=== PATIENT | male | born 1970 | race Caucasian/White ===

== ENCOUNTER → 2017-08-16 | Outpatient (CLI) | payer BC ==
[~2017-08-16] VITALS: Ht 177.8 cm; Wt 85.7 kg
[~2017-08-16] MED LIST: AMBIEN 5 MG TABL5 M1 PO; CELEBREX 200 M200 M1 PO; CELEBREX 200 M200 MG PO; CENTRUM SILVER1 EAC2 PO; IBUPROFEN 200200 M1 PO; NORCO 5-325 TA1 EACH PO; PROPECIA1 MG PO; TRAMADOL 50 MG50 MG PO
--- NOTE | ~2017-08-16 | HPC ---
[facility] [place] [address] PAIN MANAGEMENT CONSULTATION Name: LAURIE HAMILTON Room #: REG CATRINA Mahsa.#: [id number] Admission: 08/16/17 Attend Phys: Yao Guido DO Discharge: Date of : 74 Report #: [id number] THIS REPORT FOR: //name// CC: Morteza Guido HISTORY OF PRESENT ILLNESS: The patient is a very pleasant 46-year-old gentleman, prior seen for lumbar radicular symptoms back in 2013 and 2014. Somewhat lost to follow up. He returns to pain clinic today with a new complaint. He notes he has had pain for about 2 years in neck, right shoulder and arm. Denies antecedent trauma and overuse. Notes he has a burning, numb, tingling, sharp sensation, rates pain of 5 on VAS. Pain is exacerbated with cervical range of motion. He has tried a TENS unit, physical therapy, nonsteroidal anti-inflammatory medication (Advil) and an inversion table, all with incremental relief, but notes pain is continuing. He did get an MRI accomplished on 05/16/2015. Does noted C6-C7 have bilateral facet and uncovertebral hypertrophy causing severe left and bejiwruy-uh-nwovrg right neural foraminal narrowing. PHYSICAL EXAMINATION: VITAL SIGNS: Shows 46-year-old gentleman, BMI is 27.1 kilograms per meter squared. Blood pressure is 116/72, pulse 87, respirations are 14. NEUROLOGIC: Cranial nerves 2-12 are grossly intact. Pupils equal, reactive to light and accommodation. Extraocular muscles are intact. Cervical range of motion is limited with positive Lhermitte's radiating to the right shoulder and arm. Right triceps strength is diminished compared to the left. Deep tendon reflexes show diminished right triceps reflex compared to the left. Biceps and brachioradialis are generally symmetric. Hand grasp fortunately is preserved, Tinel's is negative. HEART: Regular, rhythmical. LUNGS: Clear. REVIEW OF SYSTEMS: Again, generally healthy gentleman. Twelve-point review of systems is unremarkable other than for prior history of lumbar radicular symptoms. ASSESSMENT: Symptomatic cervical radiculopathy by clinical exam and history, correlated with MRI findings. He is status post lumbar decompressive laminectomy in 2003 (left hemilaminectomy). RECOMMENDATION: 1. Epidural injection under fluoroscopy today. 2. Continue kmef-lev-gboarkq nonsteroidal anti-inflammatory medication and physical therapy. 3. Follow up in 4 [place] [address] PAIN MANAGEMENT CONSULTATION Name: LAURIE HAMILTON Room #: REG CLI Doreen#: [id number] Admission: 08/16/17 Attend Phys: Yao Guido DO Discharge: Date of : 74 Report #: [id number] PROCEDURE: Cervical epidural injection under fluoroscopy. PROCEDURE NOTE: After written and informed consent was obtained including risk of dural puncture, spinal cord trauma, paralysis and increased pain, the patient was taken to the fluoroscopy suite and placed in the prone position, with appropriate abdominal bolstering, neck was flexed, palms under the thighs. Skin was prepped with ChloraPrep. Sterile draping was applied. Skin wheal with 1% Xylocaine was raised. A 22-gauge 3-1/2 inch epidural Tuohy needle was placed via a midline approach at the C7-T1 interspace, advanced under biplanar fluoroscopy using continuous loss of resistance. With appropriate loss of resistance at the expected depth on lateral view, the glass loss of resistance syringe was disconnected. A low volume extension tubing was connected to the needle and a 5 mL syringe. Negative aspiration for cerebrospinal fluid or blood was noted. A 1 mL of Omnipaque was injected which showed spread within the epidural space on biplanar fluoroscopy. This was followed with 80 mg of triamcinolone plus 1 mL of 1.5% preservative Xylocaine. Needle was withdrawn to the interspinous ligament, 0.5 mL of Xylocaine was used to flush the needle. The needle was then completely withdrawn. The area was cleansed. Band-Aid was applied. The patient was allowed to move off the procedure table and ambulated to the recovery room, monitored for an appropriate period of time, discharged in good and stable condition. <ELECTRONICALLY SIGNED> By: Yao Guido DO 08/19/17 0657 [id number] [id number] Yao Guido DO /nt
[2017-08-16 11:01] VITALS: BP 116/72
== END ==
LOC: PAIN 07:11
DX: M54.12 Radiculopathy, cervical region (principal); Z79.899 Other long term (current) drug therapy; Z87.891 Personal history of nicotine dependence

== ENCOUNTER → 2017-09-27 | Outpatient (CLI) | payer BC ==
[~2017-09-27] VITALS: Ht 177.8 cm; Wt 85.1 kg
--- NOTE | ~2017-09-27 | HPC ---
[facility] [place] [address] [address] [place] [address] PAIN MANAGEMENT CONSULTATION Name: LAURIE HAMILTON Room #: REG CATRINA Logan#: [id number] Admission: 09/27/17 Attend Phys: Yao Guido DO Discharge: Date of : 74 Report #: [id number] THIS REPORT FOR: //name// CC: Morteza Guido SUBJECTIVE: The patient is a 46-year-old gentleman, prior seen in the pain clinic for symptomatic cervical radiculopathy, was given a single epidural injection on 08/16/2017. We did get an MRI of the cervical spine, which we reviewed today. He does have a disk protruding at C6-C7 somewhat to the right of midline. Epidural injection at last visit afforded greater than 60% relief, but still has some radicular symptoms in the right shoulder and arm. ASSESSMENT: Symptomatic cervical radiculopathy by clinical exam and history. RECOMMENDATION: Repeat epidural injection under fluoroscopy today, we will plan to see the patient in about 30 days for reevaluation, cancel if doing well. PROCEDURE: Cervical epidural injection under fluoroscopy. PROCEDURE NOTE: After written and informed consent was obtained including risk of dural puncture, spinal cord trauma, paralysis and increased pain, the patient was taken to the fluoroscopy suite and placed in the prone position, with appropriate abdominal bolstering, neck was flexed, palms under the thighs. Skin was prepped with ChloraPrep. Sterile draping was applied. Skin wheal with 1% Xylocaine was raised. A 22-gauge 3-1/2 inch epidural Tuohy needle was placed via a midline approach at the C7-T1 interspace, advanced under biplanar fluoroscopy using continuous loss of resistance. With appropriate loss of resistance at the expected depth on lateral view, the glass loss of resistance syringe was disconnected. A low volume extension tubing was connected to the needle and a 5 mL syringe. Negative aspiration for cerebrospinal fluid or blood was noted. A 1 mL of Omnipaque was injected which showed spread within the epidural space on biplanar fluoroscopy. This was followed with 80 mg of triamcinolone plus 1 mL of 1.5% preservative Xylocaine. Needle was withdrawn to the interspinous ligament, 0.5 mL of Xylocaine was used to flush the needle. The needle was then completely withdrawn. The area was cleansed. Band-Aid was applied. The patient was allowed to move off the procedure table and ambulated to the recovery room, monitored for an appropriate period of time, discharged in good and stable condition. <ELECTRONICALLY SIGNED> By: Yao Guido DO 09/30/17 0759 [id number] Yao Guido DO /nt
[2017-09-27 10:06] VITALS: BP 107/72
== END | disposition home or self-care (01) ==
LOC: PAIN 06:47
DX: M54.12 Radiculopathy, cervical region (principal); G89.29 Other chronic pain; Z87.891 Personal history of nicotine dependence

== ENCOUNTER → 2017-11-01 | Outpatient (CLI) | payer BC ==
[~2017-11-01] VITALS: Ht 177.8 cm; Wt 82.4 kg
[~2017-11-01] MED LIST changes: +OXYCODONE-ACET1 EACH PO; +ZOLPIDEM TART12.5 MG PO
--- NOTE | ~2017-11-01 | HPC ---
[facility] [address] [address] PAIN MANAGEMENT CONSULTATION Name: LAURIE HAMILTON Room #: REG CATRINA Logan#: [id number] Admission: 11/01/17 Attend Phys: Yao Giudo DO Discharge: Date of : 74 Report #: [id number] THIS REPORT FOR: //name// CC: Morteza Guido DATE OF SERVICE: 11/01/2017 HISTORY OF PRESENT ILLNESS: The patient is a very pleasant 47-year-old gentleman, being treated for symptomatic cervical radiculopathy. He has had 2 cervical epidural injections, 08/16/2017 and 09/28/2017. Both injections afforded a very good relief, in fact radicular symptoms are almost gone. Still has some pain in the right shoulder and upper arm. He has better range of motion and his hand grasp is improved. Still has tenderness in the right trapezius with a modest trigger point noted here. Still moderately positive Lhermitte's radiating to the right arm. Reviewed diagnostic findings including MRI of the cervical spine from 08/21/2017 noting moderate size right HNP at C6-C7. Symptomatic cervical radiculopathy with good overall improvement following 2 epidural injections, the patient rates about 80% overall improvement, but still has ongoing symptoms. RECOMMENDATION: 1. Cervical epidural injection under fluoroscopy today. 2. Right trigger point injection of the suprascapular muscle on the right side. PROCEDURE NOTE: Cervical epidural injection under fluoroscopy. PROCEDURE NOTE: After written and informed consent was obtained including risk of dural puncture, spinal cord trauma, paralysis and increased pain, the patient was taken to the fluoroscopy suite and placed in the prone position, with appropriate abdominal bolstering, neck was flexed, palms under the thighs. Skin was prepped with ChloraPrep. Sterile draping was applied. Skin wheal with 1% Xylocaine was raised. A 22-gauge 3-1/2 inch epidural Tuohy needle was placed via a midline approach at the C7-T1 interspace, advanced under biplanar fluoroscopy using continuous loss of resistance. With appropriate loss of resistance at the expected depth on lateral view, the glass loss of resistance syringe was disconnected. A low volume extension tubing was connected to the needle and a 5 mL syringe. Negative aspiration for cerebrospinal fluid or blood was noted. A 1 mL of Omnipaque was injected which showed spread within the epidural space on biplanar fluoroscopy. This was followed with 60 mg of triamcinolone plus 1 mL of 1.5% preservative Xylocaine. Needle was withdrawn to the interspinous ligament, 0.5 mL of Xylocaine was used to flush the needle. The needle was then completely withdrawn. The area was cleansed. Band-Aid was [address] [address] PAIN MANAGEMENT CONSULTATION Name: LOLIARLEENLAURIE Gorman Room #: REG CLJamar Logan#: [id number] Admission: 11/01/17 Attend Phys: Yao Guido DO Discharge: Date of : 74 Report #: [id number]. Attention was then directed toward the single Trigger point identified in the right suprascapular muscle; this area was cleansed with alcohol and a 25 guage needle was used to inject 20 mg triamcinalone plus 4 cc 1% xylocaine into and around the quill stripper point. Needle was removed and bandaid was applied. The patient was allowed to move off the procedure table and ambulated to the recovery room, monitored for an appropriate period of time, discharged in good and stable condition. <ELECTRONICALLY SIGNED> By: Yao Guido DO 11/04/17 0731 [id number] [id number] Yao Guido DO /nt
[2017-11-01 10:52] VITALS: BP 141/87
== END | disposition home or self-care (01) ==
LOC: PAIN 06:48
DX: M54.12 Radiculopathy, cervical region (principal); M79.1 Myalgia; Z87.891 Personal history of nicotine dependence

== ENCOUNTER → 2018-02-21 | Outpatient (CLI) | payer BC ==
[~2018-02-21] VITALS: Ht 177.8 cm; Wt 81.6 kg
--- NOTE | ~2018-02-21 | HPC ---
[facility] [address] [employer] [place] [address] PAIN MANAGEMENT CONSULTATION Name: LAURIE HAMILTON Room #: REG CATRINA Mahsa.#: [id number] Admission: 02/21/18 Attend Phys: Yao Guido DO Discharge: Date of : 74 Report #: [id number] THIS REPORT FOR: //name// CC: Morteza Guido The patient is a very pleasant 47-year-old gentleman, prior treated last fall for cervical radiculopathy. He had cervical epidural injections in 07/2017 and 09/2017 and a third injection on 11/01/2017. He had prior been treated for lumbar radicular pain back in 2013 and again in 2014. The patient was doing well following cervical epidural injections, but notes in the past 4-6 weeks, pain has begun to recur in the low back radiating down the left leg in an L4-L5 pattern. Notes intermittent paresthesia. Rates his pain a 5 on a VAS. Notes no myelopathic symptoms. The patient is status post prior laminotomy at L5-S1. PHYSICAL EXAMINATION: Notes 5 feet 10 inches, 180 pounds gentleman, BMI is 25.8 kilograms per meter squared. Blood pressure 121/82, pulse 98 and respirations 14. Rises from chair using armrest, modestly antalgic gait, positive straight leg raise at 30 degrees on the left, diminished left patellar reflex compared to the right. Achilles reflex diminished on the left as well. Skin integument is intact. Gait is generally tandem. Lumbar flexion exacerbates some diffuse back pain. Reviewing diagnostic studies somewhat dated from 09/2014 does note the aforementioned laminotomy defect on the left at L5-S1. There was tissue surrounding the proximal left S1 nerve root. ASSESSMENT: Symptomatic lumbar radiculopathy by clinical exam and history. RECOMMENDATIONS: Given excellent relief with prior injection back in 2013 and 2014, we will repeat a single left midline epidural injection at L4-L5. Follow up in 4 weeks for evaluation. If this does not afford adequate relief, we will need a new MRI of the lumbar spine with and without contrast. Continue p.r.n. Celebrex. Encouraged p.r.n. Aleve use and encouraged this on a more daily basis. ASSESSMENT: 1. Symptomatic lumbar radiculopathy by clinical exam and history. 2. Symptomatic cervical radiculopathy, symptoms relatively quiescent following prior series of cervical epidural injections. PROCEDURE: Lumbar epidural injection under fluoroscopy. [address] [address] PAIN MANAGEMENT CONSULTATION Name: LAURIE HAMILTON Room #: REG CLI Doreen#: [id number] Admission: 02/21/18 Attend Phys: Yao Guido DO Discharge: Date of : 74 Report #: [id number] PROCEDURE NOTE: After both written and informed consent to include risk of spinal cord damage, increased pain, weakness and dural puncture, the patient was taken to the fluoroscopy suite, placed in the prone position. After sterile prep and drape, a skin wheal with lidocaine was raised. A 22-gauge epidural Tuohy needle was inserted in the midline at L4-L5 with good loss to resistance. Negative aspiration for cerebrospinal fluid or blood was noted. Then 1 mL of Omnipaque under biplanar fluoroscopy showed good spread within the epidural space. This was followed with 80 mg of triamcinolone plus 1 mL of 1.5% preservative-free Xylocaine, 0.5 mL Xylocaine was then injected to flush the needle; it was removed. The patient was monitored for an appropriate period of time and discharged in good and stable condition. <ELECTRONICALLY SIGNED> By: Yao Guido DO 02/24/18 0830 1156 0028 Yao Guido DO /nt
[2018-02-21 10:19] VITALS: BP 121/82
== END | disposition home or self-care (01) ==
LOC: PAIN 06:55
DX: M54.16 Radiculopathy, lumbar region (principal); G89.29 Other chronic pain; M54.12 Radiculopathy, cervical region; Z87.891 Personal history of nicotine dependence; Z98.890 Other specified postprocedural states

== ENCOUNTER → 2019-01-16 | Outpatient (CLI) | payer BC ==
[~2019-01-16] VITALS: Ht 177.8 cm; Wt 79.4 kg
[~2019-01-16] MED LIST changes: +FLONASE 0.05%50 MCG NASAL; +TADALAFIL20 M1 PO; +TESTOSTERONE75 G1; +TRUVADA 200 MG1 EACH PO; +XANAX1 MG PO
[2019-01-16 10:14] VITALS: BP 134/84
--- NOTE | 2019-01-16 10:24 | NUR ---
Pain Clinic Assessment: 1. History of Osteoarthritis: Not Applicable History of Rheumatoid Arthritis: Not Applicable 2. Height: 5 ft. 10 in. 177.8 cm. Weight: 175.0 lb. oz. 79.380 kg. Patient's BMI: 25.1 3. Vital Signs: BP: 134/84 Pulse: 90 Resp: 18 Temp: 02 Sat: 99 ECG Mon: 4. Pain Intensity: 5 5. Fall Risk: Dizziness: N Needs help standing or walking: N Fallen in the last 3 months: N Fall risk comments: 6. Patient on Blood Thinner: None 7. History of Hypertension: N 8. Opioid Therapy greater than 6 weeks: N Opiate Contract Signed: 9. Risk Assessment Tool Provided: LOW RISK 0 10. Functional Assessment Tool: 45/ 11. Recreational Drug Use: Never Drug Type: Tobacco Use: Former Smoker Tobacco Type: Amount or Packs/day: How Many Years: Alcohol Use: Yes Frequency: Weekly Quant: 2
--- NOTE | 2019-01-23 10:31 | NUR ---
01/23/19 CALLED PATIENT REGARDING RIMA ON 01/16/19-PATIENT STATES THAT HE FEELS SO MUCH BETTER RATING PAIN 2/10. ABLE TO DO THINGS WITH MINIMAL PAIN. ALSO STATED THAT HE WQAS VERY HAPPY WITH CARE HE RECEIVED.
== END | disposition home or self-care (01) ==
LOC: PAIN 06:51
DX: M54.12 Radiculopathy, cervical region (principal); Z87.891 Personal history of nicotine dependence; Z79.899 Other long term (current) drug therapy

== ENCOUNTER → 2019-08-05 | Outpatient (CLI) | payer BC ==
[~2019-08-05] VITALS: Ht 177.8 cm; Wt 81.0 kg
[2019-08-05 10:37] VITALS: BP 119/77
--- NOTE | 2019-08-05 10:44 | NUR ---
Pain Clinic Assessment: 1. History of Osteoarthritis: Not Applicable History of Rheumatoid Arthritis: Not Applicable 2. Height: 5 ft. 10 in. 177.8 cm. Weight: 178.6 lb. oz. 81.012 kg. Patient's BMI: 25.6 3. Vital Signs: BP: 119/77 Pulse: 87 Resp: 14 Temp: 02 Sat: 98 ECG Mon: 4. Pain Intensity: 6 5. Fall Risk: Dizziness: N Needs help standing or walking: N Fallen in the last 3 months: N Fall risk comments: 6. Patient on Blood Thinner: None 7. History of Hypertension: N 8. Opioid Therapy greater than 6 weeks: N Opiate Contract Signed: 9. Risk Assessment Tool Provided: LOW RISK 0 10. Functional Assessment Tool: 11. Recreational Drug Use: Never Drug Type: Tobacco Use: Former Smoker Tobacco Type: Amount or Packs/day: How Many Years: Alcohol Use: Yes Frequency: Quant:
--- NOTE | 2019-09-04 08:25 | HPC ---
[facility] [place] [address] [place] [address] PAIN MANAGEMENT CONSULTATION Name: LAURIE HAMILTON Room #: REG CLJamar Bragg.#: [id number] Admission: 08/05/19 Attend Phys: James Eastman MD Discharge: Date of : 74 Report #: [id number] THIS REPORT FOR: //name// CC: Morteza Eastman DATE OF SERVICE: 08/05/2019 CHIEF COMPLAINT: "Here for another injection." HISTORY: The patient is a 48-year-old gentleman who has been seen in the pain clinic because of chronic pain. He is complaining of pain that radiates down from his right neck into his right shoulder. Notes that the pain can be problematic with movement of his neck. He rates it as a 6/10 at this point. Notes that the pain is exacerbated when he is sleeping as well as with head movements. He has used heat as well as notes some activities can decrease the pain and discomfort. He has undergone a cervical epidural steroid injection in the past and found them beneficial. He returns today with the desire to undergo another injection to help decrease the pain and discomfort that he is experiencing. ALLERGIES: No known drug allergies. CURRENT MEDICATIONS: Xanax 1 mg b.i.d., Flonase 0.05% nasal spray, testosterone ____, 200 mg/300 mg tablets, Tadalafil 20 mg, oxycodone 5/325 b.i.d. p.r.n., Zolpidem 12.5 mg at bedtime. ALLERGIES: No known drug allergies. PAIN CLINIC ASSESSMENT AND PQRS: 1. History of osteoarthritis with arthritic changes in the neck. The patient is not being treated for rheumatoid arthritis. 2. Height 5 feet 10 inches, weight 178 pounds, BMI is 25.6. 3. Vital Signs: Blood pressure 119/77, pulse 87, respiratory rate 14, room air saturation 98%. 4. Pain intensity 6/10. 5. Fall history: The patient has not fallen. 6. Blood thinner. The patient is not on a blood thinning medication. 7. Hypertension. The patient is not being treated for hypertension. 8. Opioids greater than 6 weeks. The patient received medication from one source. 9. Risk assessment tool for opioids low for opioid use. 10. Functional assessment tool . 11. Recreational drug use: The patient denies. 12. Tobacco: The patient is a former smoker. 13. Alcohol: The patient drinks alcoholic beverages on occasion. [facility] [address] [place] [address] PAIN MANAGEMENT CONSULTATION Name: LAURIE HAMILTON [facility] [id number] Admission: 08/05/19 Attend Phys: James Eastman MD Discharge: Date of : 74 Report #: [id number] PHYSICAL EXAMINATION: GENERAL: The patient is a well-developed, well-nourished white male. Appears his stated age. He is alert and oriented x 3. Affect is appropriate. Speech is fluent. HEENT: Normocephalic, atraumatic. Extraocular eye muscles intact. Sclerae nonicteric. Mucous membranes are moist. The patient has pain and discomfort in the upper extremity with pain that radiates down into his right side shoulder and neck area. HEART: Regular rate. ABDOMEN: Nontender. LUNGS: Clear to auscultation. MUSCULOSKELETAL: Upper extremity muscle strength judged to be 5-/5 for the major muscle groups in the upper extremity on the right. The patient has some discomfort. Continues to have pain that radiates down to his right arm with some numbness and tingling on the right side with involvement of his pinky finger. Notes pain and discomfort in the right shoulder muscle. The perception of numbness and tingling in this area. IMPRESSION: 1. Cervical radiculopathy involving the right arm with numbness down into the small finger and the C7/C8 dermatomal distribution. 2. Joint disease/arthritis. RECOMMENDATIONS: We discussed treatment options with the patient. Risks and benefits of a cervical epidural steroid injection were discussed. Possible complications of the procedure, which could include but are not limited to infection, worsening of pain, no improvement in pain, bleeding, increased muscle soreness were discussed and the patient elects to proceed. PROCEDURE NOTE: The patient was taken to the procedure area. He was then assisted in getting on examination table. A pillow was placed under his shoulders for positioning. Fluoroscopy using anterior, posterior as well as lateral viewing were implemented. A 17-gauge Tuohy with loss of resistance technique was placed at the C7-T1 interspace. This area had been sterilely prepped with a Betadine solution. It was infiltrated with 0.25% bupivacaine using a 25-gauge needle. There was no CSF, heme or paresthesia. A total of 120 mg triamcinolone was injected. The patient tolerated the procedure well. There were no complications. A total of 10 seconds fluoroscopy time was used. The patient's pain was 2-3 at the time of discharge. He will follow up in the future as needed. [address] [address] PAIN MANAGEMENT CONSULTATION Name: ALURIE HAMILTON Room #: REG CATRINA Bragg.#: [id number] Admission: 08/05/19 Attend Phys: James aEstman MD Discharge: Date of : 74 Report #: [id number] We would like to thank you for letting us participate in his care. We hope he continues to improve. <ELECTRONICALLY SIGNED> By: James Eastman MD 09/04/19 0825 1138 1608 James Eastman MD /nt
== END | disposition home or self-care (01) ==
LOC: PAIN 07:00
DX: M54.2 Cervicalgia (principal); G89.29 Other chronic pain; Z87.891 Personal history of nicotine dependence

== ENCOUNTER → 2020-03-02 | Outpatient (CLI) | payer BC ==
[~2020-03-02] VITALS: Ht 177.8 cm; Wt 83.8 kg
[2020-03-02 08:15] VITALS: BP 131/86
--- NOTE | 2020-03-02 08:24 | NUR ---
Pain Clinic Assessment: 1. History of Osteoarthritis: Not Applicable History of Rheumatoid Arthritis: Not Applicable 2. Height: 5 ft. 10 in. 177.8 cm. Weight: 184.8 lb. oz. 83.825 kg. Patient's BMI: 26.5 3. Vital Signs: BP: 131/86 Pulse: 104 Resp: 14 Temp: 02 Sat: 100 ECG Mon: 4. Pain Intensity: 8 5. Fall Risk: Dizziness: N Needs help standing or walking: N Fallen in the last 3 months: N Fall risk comments: 6. Patient on Blood Thinner: None 7. History of Hypertension: N 8. Opioid Therapy greater than 6 weeks: N Opiate Contract Signed: 9. Risk Assessment Tool Provided: LOW RISK 0 10. Functional Assessment Tool: 45/ 11. Recreational Drug Use: Never Drug Type: Tobacco Use: Former Smoker Tobacco Type: Amount or Packs/day: How Many Years: Alcohol Use: Yes Frequency: Weekly Quant:
--- NOTE | 2020-03-04 13:39 | HPC ---
[facility] [place] [address] PAIN MANAGEMENT CONSULTATION Name: LAURIE HAMILTON Room #: REG CATRINA Mahsa.#: [id number] Admission: 03/02/20 Attend Phys: James Eastman MD Discharge: Date of : 74 Report #: [id number] THIS REPORT FOR: cc: Morteza Chavez MD, Darren E. MD Brown,James Hoyt MD ~ CC: Morteza Eastman DATE OF SERVICE: 03/02/2020 CHIEF COMPLAINT: The pain has returned and I am having pain down in my right arm, which has gotten worse over the last few days. HISTORY: The patient is a 49-year-old gentleman who has been seen in the pain clinic because of cervical radiculopathy. He has undergone cervical epidural steroid injections in the past. These have proven beneficial. Over the last 6 months, the patient had been doing relatively well. He is now noticing uptick in his pain. He rates it as a 7-8 at this point. He notes that the pain is severely limiting his ability to flex and extend his neck. Left and right lateral rotation were not as problematic. He would like to proceed with another injection. He is aware that the COVID-19 virus is active. He feels that his pain is significantly problematic to the point that he feels that it is urgent/emergent that he undergo an injection to help curtail his pain. CURRENT MEDICATIONS: Xanax 1 mg b.i.d., Flonase 0.5% nasal spray, testosterone, tadalafil 20 mg, oxycodone 5/325 one p.o. b.i.d. p.r.n., zolpidem 12.5 mg at bedtime. ALLERGIES: No known drug allergies. PAIN CLINIC ASSESSMENT AND PQRS: 1. The patient has a history of osteoarthritis with arthritic changes in his neck. He is not being treated for rheumatoid arthritis. 2. Height 5 feet 10 inches, weight 184 pounds, BMI is 26.5. 3. Vital Signs: Blood pressure 131/86, pulse 104, respiratory rate 14, room air saturation 100. 4. Pain intensity: 7-8/10. 5. Fall history: The patient has not fallen in the last 3 months. 6. Blood thinner: The patient is not on a blood thinning medication. 7. Hypertension: The patient is not being treated for hypertension. 8. Opioids greater than 6 weeks: The patient is not on an opioid regimen on a regular basis. 9. Risk assessment tool: Low for opioid use. 10. Functional assessment tool: 45/70. 11. Recreational drug use: [place] [address] PAIN MANAGEMENT CONSULTATION Name: LAURIE HAMILTON Room #: REG CL Doreen#: [id number] Admission: 03/02/20 Attend Phys: James Eastman MD Discharge: Date of : 74 Report #: [id number] 12. Tobacco: The patient is a former smoker. 13. Alcohol: The patient occasionally drinks alcoholic beverages. PHYSICAL EXAMINATION: GENERAL: The patient is a well-developed, well-nourished white male. Appears his stated age. He is alert and oriented x 3. His affect is appropriate. Speech is fluent. HEENT: Normocephalic, atraumatic. Extraocular eye muscles are intact. Sclerae nonicteric. Mucous membranes are moist. The patient is wearing a mask. NECK: He has complained of pain and discomfort in his left and the right side, more problematic on the right with radiation down into his arm and into his forearm. Lumbar extension, lumbar flexion all cause increased pain and discomfort. The patient has a positive increased pain with cervical compression. HEART: Regular rate. ABDOMEN: Nontender. LUNGS: Generally clear. IMPRESSION: 1. Cervical radiculopathy involving the right arm with numbness down into the small finger at C7/C8. 2. Joint disease/arthritis. RECOMMENDATIONS: We discussed treatment options with the patient. We explained to the patient risks and benefits of the procedure. They include but are not limited to infection, worsening of pain, no improvement in pain, nerve damage, cervical nerve damage, spinal headache and the patient elects to proceed. We also reviewed the COVID-19 guidance. The patient has pain, which he feels is urgent/emergent. He has pain that is radiating down into his right arm with numbness and tingling. He is unable to gain comfort. We have explained to the patient the possible changes. The development of immune suppression can be induced with steroid use. We will refrain from use of nonsteroidal anti-inflammatory medications at this juncture. The patient does not have significant comorbidities. He elects to proceed. PROCEDURE NOTE: The patient was taken to the procedure area. He was then assisted in getting on the examination table. His back was sterilely prepped with a Betadine solution. The C7-T1 interspace was identified using fluoroscopy. A 25-gauge needle with 0.25% bupivacaine was used to anesthetize the area. A 17-gauge Tuohy with loss of resistance technique was then used to gain access to the epidural space. There was no CSF, heme or paresthesia. A total of 120 mg triamcinolone was injected. The patient tolerated the procedure well. He rated his pain as 4/10 at the time of discharge. He underwent 11 seconds of fluoroscopy time. He will follow up in the near future. The patient will try and maintain distancing from others. He will continue to wear his mask. He will call us if he has any concerns. [address] [address] PAIN MANAGEMENT CONSULTATION Name: LAURIE HAMILTON [id number] Admission: 03/02/20 Attend Phys: James Eastman MD Discharge: Date of : 74 Report #: [id number] We would like to thank you for letting us participate in his care. We hope he continues to improve. <ELECTRONICALLY SIGNED> By: James Eastman MD 03/04/20 [id number] James Eastman MD /nt
== END | disposition home or self-care (01) ==
LOC: PAIN 06:38
DX: M54.12 Radiculopathy, cervical region (principal); G89.29 Other chronic pain; M19.90 Unspecified osteoarthritis, unspecified site; Z98.890 Other specified postprocedural states; Z79.899 Other long term (current) drug therapy; Z87.891 Personal history of nicotine dependence

== ENCOUNTER → 2020-04-15 | Outpatient (CLI) | payer BC ==
[~2020-04-15] VITALS: Ht 177.8 cm; Wt 83.9 kg
[2020-04-15 08:05] VITALS: BP 132/83
--- NOTE | 2020-04-15 08:09 | NUR ---
Pain Clinic Assessment: 1. History of Osteoarthritis: Not Applicable History of Rheumatoid Arthritis: Not Applicable 2. Height: 5 ft. 10 in. 177.8 cm. Weight: 185.0 lb. oz. 83.916 kg. Patient's BMI: 26.5 3. Vital Signs: BP: 132/83 Pulse: 106 Resp: 18 Temp: 02 Sat: 96 ECG Mon: 4. Pain Intensity: 8 5. Fall Risk: Dizziness: N Needs help standing or walking: N Fallen in the last 3 months: N Fall risk comments: 6. Patient on Blood Thinner: None 7. History of Hypertension: N 8. Opioid Therapy greater than 6 weeks: N Opiate Contract Signed: 9. Risk Assessment Tool Provided: LOW RISK 0 10. Functional Assessment Tool: 45/ 11. Recreational Drug Use: Never Drug Type: Tobacco Use: Former Smoker Tobacco Type: Amount or Packs/day: How Many Years: Alcohol Use: Yes Frequency: Quant:
--- NOTE | 2020-04-18 02:56 | HPC ---
[facility] [place] [address] PAIN MANAGEMENT CONSULTATION Name: LAURIE HAMILTON [id number] Admission: 04/15/20 Attend Phys: James Eastman MD Discharge: Date of : 74 Report #: [id number] THIS REPORT FOR: cc: Morteza Chavez MD, Darren E. MD Brown,James Hoyt MD ~ CC: Morteza Eastman DATE OF SERVICE: 04/15/2020 CHIEF COMPLAINT: The arthritis in my neck has gotten worse. HISTORY: The patient is a 49-year-old gentleman who has been followed in the Pain Clinic because of cervical radiculopathy. He underwent an epidural steroid injection in the past. He feels that he got about 80% improvement after the injection. Pain has still been problematic. He went to [facility]. States that he had an MRI, which showed that the area in his back have narrowed. He is noticing continued pain down his right arm. He rates his pain today as an 8/10. He would like to proceed with an epidural steroid injection. Had no complication from the previous treatment course. Notes that the pain is worse when he is sleeping. Notes movement of his head to look up causes pain and discomfort in the right shoulder blade and mid portion of his back. ALLERGIES: No known drug allergies. CURRENT MEDICATIONS: Xanax 1 mg b.i.d., Flonase 0.5 mg, testosterone, Tadalafil 20 mg, oxycodone 5/325 one p.o. b.i.d., zolpidem 12.5 mg. PAIN CLINIC ASSESSMENT/PQRS: 1. The patient has some osteoarthritic changes in his neck. He is not being treated for rheumatoid arthritis. 2. Height 5 feet 10 inch, weight 185 pounds, BMI is 26.5. 3. Vital signs: Blood pressure 132/83, pulse 106, respiratory rate 18, room air saturation is 96%. 4. Pain intensity, 06/06. 5. Fall history: The patient has not fallen. 6. Blood thinner. The patient is not on a blood thinning medication. 7. Hypertension. The patient is not being treated for hypertension. 8. Opioids. The patient is not on a opioid regimen. 9. Risk assessment tool, low for opioid use. 10. Functional assessment tool, . 11. Recreational drug use. The patient denies. 12. Tobacco: The patient is a former smoker. [address] [address] PAIN MANAGEMENT CONSULTATION Name: LAURIE HAMILTON Room #: REG [facility]#: [id number] Admission: 04/15/20 Attend Phys: James Eastman MD Discharge: Date of : 74 Report #: [id number] 13. Alcohol: The patient denies use of alcoholic beverages. PHYSICAL EXAMINATION: GENERAL: The patient is a well-developed, well-nourished white male. Appears his stated age. He is alert and oriented x 3. His affect is appropriate. Speech is fluent. HEENT: Normocephalic, atraumatic. Extraocular eye muscles intact. Sclerae nonicteric. Mucous membranes are moist. NECK: Without adenopathy. The patient is wearing a mask. The patient with complaints of pain with extension of his neck. Notes pain radiating to right shoulder with pain radiating down into the right shoulder blade and mid portion of his back. Has pain and discomfort in the right forearm. Lumbar extension is not problematic. Lower extremity muscle strength is judged to be 5/5 for the major muscle groups in the lower extremity. HEART: Regular rate. ABDOMEN: Nontender. LUNGS: Clear. IMPRESSION: 1. Cervical radiculopathy involving the right arm with numbness and tingling down into the right arm, right fingers in the C7-T1 area. 2. Joint disease/arthritis. RECOMMENDATIONS: We discussed treatment options with the patient. Risks and benefits of an epidural steroid injection were again discussed. Possible complications of the procedure, which could include but are not limited to infection, worsening of pain, no improvement in pain, nerve damage, bleeding, headache were discussed and the patient elects to proceed. PROCEDURE NOTE: The patient was taken to the procedure area. He was then assisted in getting on examination table. His back was sterilely prepped with a Betadine solution. Fluoroscopy using anterior, posterior as well as lateral viewing were implemented. A skin wheal was placed at the C7-T1 interspace. A 17-gauge Tuohy with loss of resistance technique was used to gain access to the epidural space. There was no CSF, heme or paresthesia. A 120 mg triamcinolone was injected. Anterior and posterior viewing with fluoroscopy confirmed appropriate placement. A total of 8 seconds fluoroscopy time was used. The patient remained in the Pain Clinic for an appropriate amount of time. His pain decreased to 0-1 at the time of discharge. We would like to thank you for letting us participate in his care. We hope he continues to improve. <ELECTRONICALLY SIGNED> By: James Eastman MD 04/18/20 [id number] James Eastman MD /nt
== END | disposition home or self-care (01) ==
LOC: PAIN 06:46
PROVIDERS: ATTEND Anesthesiology Pain Medicine
DX: M54.12 Radiculopathy, cervical region (principal); G89.29 Other chronic pain; M19.90 Unspecified osteoarthritis, unspecified site; Z98.890 Other specified postprocedural states; Z79.899 Other long term (current) drug therapy; Z87.891 Personal history of nicotine dependence

== ENCOUNTER → 2020-12-21 | Outpatient (CLI) | payer OTHER ==
[~2020-12-21] VITALS: Ht 177.8 cm; Wt 82.6 kg
[2020-12-21 14:41] VITALS: BP 136/79
--- NOTE | 2020-12-21 14:57 | NUR ---
Pain Clinic Assessment: 1. History of Osteoarthritis: Not Applicable History of Rheumatoid Arthritis: Not Applicable 2. Height: 5 ft. 10 in. 177.8 cm. Weight: 182.2 lb. oz. 82.645 kg. Patient's BMI: 26.1 3. Vital Signs: BP: 136/79 Pulse: 86 Resp: 16 Temp: 02 Sat: 98 ECG Mon: 4. Pain Intensity: 9 5. Fall Risk: Dizziness: N Needs help standing or walking: N Fallen in the last 3 months: N Fall risk comments: 6. Patient on Blood Thinner: None 7. History of Hypertension: N 8. Opioid Therapy greater than 6 weeks: N Opiate Contract Signed: 9. Risk Assessment Tool Provided: LOW RISK 0 10. Functional Assessment Tool: 45/ 11. Recreational Drug Use: Never Drug Type: Tobacco Use: Former Smoker Tobacco Type: Amount or Packs/day: How Many Years: Alcohol Use: Yes Frequency: Weekly Quant: 1
== END | disposition home or self-care (01) ==
LOC: PAIN 06:59
PROVIDERS: ATTEND Anesthesiology Pain Medicine
DX: M54.2 Cervicalgia (principal); M54.12 Radiculopathy, cervical region; G89.29 Other chronic pain; Z98.890 Other specified postprocedural states; Z79.899 Other long term (current) drug therapy; Z90.49 Acquired absence of other specified parts of digestive tract

== ENCOUNTER → 2021-09-15 | Outpatient (CLI) | payer OTHER ==
[~2021-09-15] VITALS: Ht 177.8 cm; Wt 85.4 kg
[~2021-09-15] MED LIST changes: +PERCOCET 5-3251 EACH PO
[2021-09-15 08:16] VITALS: BP 134/78
--- NOTE | 2021-09-15 08:21 | NUR ---
Pain Clinic Assessment: 1. History of Osteoarthritis: Not Applicable History of Rheumatoid Arthritis: Not Applicable 2. Height: 5 ft. 10 in. 177.8 cm. Weight: 188.2 lb. oz. 85.367 kg. Patient's BMI: 27.0 3. Vital Signs: BP: 134/78 Pulse: 77 Resp: 16 Temp: 02 Sat: 99 ECG Mon: 4. Pain Intensity: 7 5. Fall Risk: Dizziness: N Needs help standing or walking: N Fallen in the last 3 months: N Fall risk comments: 6. Patient on Blood Thinner: None 7. History of Hypertension: N 8. Opioid Therapy greater than 6 weeks: N Opiate Contract Signed: 9. Risk Assessment Tool Provided: LOW RISK 0 10. Functional Assessment Tool: 11. Recreational Drug Use: Never Drug Type: Tobacco Use: Former Smoker Tobacco Type: Amount or Packs/day: How Many Years: Alcohol Use: Yes Frequency: Weekly Quant: 2-3
== END | disposition home or self-care (01) ==
LOC: PAIN 08:02
PROVIDERS: ATTEND Anesthesiology Pain Medicine
DX: M54.12 Radiculopathy, cervical region (principal); G89.29 Other chronic pain; M19.90 Unspecified osteoarthritis, unspecified site; Z98.890 Other specified postprocedural states; Z79.899 Other long term (current) drug therapy; Z87.891 Personal history of nicotine dependence; Z90.49 Acquired absence of other specified parts of digestive tract